=== PATIENT | female | born 1980 | race Caucasian/White ===

== ENCOUNTER 2018-02-18 09:33 | Emergency (ER) | payer MEDICAID ==
[~2018-02-18] VITALS: Ht 167.6 cm; Wt 120.5 kg
[2018-02-18 09:53] VITALS: Ht 167.6 cm; Wt 120.5 kg
[2018-02-18] MEDS ORDERED: BCP (09:57)
[2018-02-18] MEDS ORDERED: MEDROL DOSE PACK4 MG PO (10:58)
[2018-02-18] MEDS ORDERED: VOLTAREN75 MG PO (10:58)
[2018-02-18] MEDS ORDERED: VIBRAMYCIN 100100 MG PO (10:58)
[2018-02-18 12:20] VITALS: BP 134/84
== END 2018-02-18 12:20 | disposition home or self-care (01) ==
LOC: D.ER 09:33
DX: M25.561 Pain in right knee (principal); J06.9 Acute upper respiratory infection, unspecified; R09.89 Other specified symptoms and signs involving the circulatory and respiratory systems; R05 Cough; F17.200 Nicotine dependence, unspecified, uncomplicated

== ENCOUNTER 2018-04-23 22:42 | Emergency (ER) | payer MEDICAID ==
[~2018-04-23] VITALS: Ht 167.6 cm; Wt 120.0 kg
[~2018-04-23 22:42] MED LIST: BCP; MEDROL DOSE PACK4 MG PO; VIBRAMYCIN 100100 MG PO; VOLTAREN75 MG PO
[2018-04-23 22:47] VITALS: Ht 167.6 cm; Wt 120.0 kg
[2018-04-23] MEDS ORDERED: BACTRIM DS1 TAB PO (23:14)
[2018-04-23] MEDS ORDERED: MUPIROCIN22 GM TOPICAL (23:14)
[2018-04-23 23:26] VITALS: BP 116/70
== END 2018-04-23 23:23 | disposition home or self-care (01) ==
LOC: D.ER 22:42
DX: L02.31 Cutaneous abscess of buttock (principal); F17.200 Nicotine dependence, unspecified, uncomplicated